=== PATIENT | female | born 1995 | race Caucasian/White ===

== ENCOUNTER 2019-05-30 19:47 | Emergency (ER) | payer OTHER ==
--- NOTE | 2019-05-30 20:49 | ED ---
Laceration/Wound HPI - HPI Summary HPI Summary: 23-year-old female presents with left pinky finger injury. States she cut it on a utility knife. The area is not actively bleeding. No numbness or tingling. She has full range of motion of finger. Tetanus up-to-date. Has no medical conditions. - History of Current Complaint Stated Complaint: LT PINKY LAC PER PT Time Seen by Provider: 05/30/19 20:23 Pain Intensity: 6 - Allergy/Home Medications Allergies/Adverse Reactions: Allergies Allergy/AdvReac Type Severity Reaction Status Date / Time No Known Allergies Allergy Verified 05/30/19 19:51 PMH/Surg Hx/FS Hx/Imm Hx Endocrine/Hematology History: Denies: Hx Anticoagulant Therapy Respiratory History: Denies: Hx Asthma Infectious Disease History: No Infectious Disease History: Denies: Traveled Outside the [place] in Last 30 Days - Family History Known Family History: Positive: Non-Contributory - Social History Alcohol Use: Rare Substance Use Type: Reports: None Smoking Status (MU): Never Smoked Tobacco Review of Systems Negative: Fever Negative: Chest Pain Negative: Shortness Of Breath Positive: Other - laceration left pinky All Other Systems Reviewed And Are Negative: Yes Physical Exam Triage Information Reviewed: Yes Vital Signs On Initial Exam: Initial Vitals Temp Pulse Resp BP Pulse Ox 98.1 F 108 15 153/100 97 05/30/19 19:50 05/30/19 19:50 05/30/19 19:50 05/30/19 19:50 05/30/19 19:50 Vital Signs Reviewed: Yes Appearance: Positive: Well-Appearing Skin: Positive: Warm, Dry, Other - 1 1/2cm by 1/2cm laceration to distal phalanx left distal phalanx of pinky Head/Face: Positive: Normal Head/Face Inspection Eyes: Positive: Normal, Conjunctiva Clear ENT: Positive: Pharynx normal Respiratory/Lung Sounds: Positive: Clear to Auscultation, Breath Sounds Present Cardiovascular: Positive: Normal, RRR Musculoskeletal: Positive: Strength/ROM Intact - left pinky, Other - capillary refill<2secs Neurological: Positive: Normal Psychiatric: Positive: Normal Procedures - Laceration/Wound Repair 1 Location: Other - left pinky finger Description: Linear Anesthesia: Digital, 1.0% Length, Depth and Shape: 1 1/2cm by 1/2cm Irrigated w/ Saline (ccs): 1,000 Laceration/Wound Explored: clean Closure: Single Layer Number of Sutures: 2 Sterile Dressing Applied?: No Diagnostics - Vital Signs Vital Signs Temp Pulse Resp BP Pulse Ox 05/30/19 19:50 98.1 F 108 15 153/100 97 - Laboratory Lab Statement: Any lab studies that have been ordered have been reviewed, and results considered in the medical decision making process. Laceration Repair Course/Dx - Course Course Of Treatment: 23-year-old female presents with left pinky finger injury. States she cut it on a utility knife. The area is not actively bleeding. No numbness or tingling. She has full range of motion of finger. Tetanus up-to- date. Has no medical conditions. On exam has one and half cm laceration of left pinky area. Clean area and place 2 sutures. Told to keep area clean and dry. Patient understands and agrees the plan. - Differential Dx Differental Diagnoses: Abrasion, Avulsion, Laceration - Clinical Impression Provider Diagnoses: Laceration of left little finger Discharge ED - Sign-Out/Discharge Documenting (check all that apply): Patient Departure Patient Received Moderate/Deep Sedation with Procedure: No - Discharge Plan Condition: Good Disposition: HOME Patient Education Materials: Care For Your Stitches (ED) Referrals: No Primary Care Phys,NOPCP [Primary Care Provider] - Additional Instructions: Take Tylenol or ibuprofen for pain every 6 hours as needed Keep area clean and dry for 24 hours Return to ED or primary in 8-10 days to have sutures removed Return to ED if develop signs of infection such as fever, spreading redness, or pus. - Billing Disposition and Condition Condition: GOOD Disposition: Home
[2019-05-30] MEDS ORDERED: Lidocaine 1% MPF ** 5 ML VIAL INJ ONE (21:18)
[2019-05-30 21:23] VITALS: BP 133/89
== END 2019-05-30 21:22 | disposition home or self-care (01) ==
LOC: ED 19:47
DX: S61.217A Laceration without foreign body of left little finger without damage to nail, initial encounter (principal); W27.8XXA Contact with other nonpowered hand tool, initial encounter; Y92.9 Unspecified place or not applicable
CPT/HCPCS: 12001; 99282